=== PATIENT | male | born 1965 | race Caucasian/White ===

== ENCOUNTER → 2018-07-23 | Outpatient (CLI) | payer BC ==
[~2018-07-23] MED LIST: CIP500 PO; PER PO; TAMS0.4C25 PO
== END ==
LOC: US 00:44
PROVIDERS: ATTEND Family Medicine
DX: I48.0 Paroxysmal atrial fibrillation (principal); R29.898 Other symptoms and signs involving the musculoskeletal system; I51.7 Cardiomegaly; I34.0 Nonrheumatic mitral (valve) insufficiency
CPT/HCPCS: 93306

== ENCOUNTER → 2018-10-06 | Outpatient (CLI) | payer BC ==
--- NOTE | 2018-10-06 17:25 | RT STRESS TEST REPORT ---
FACILITY: [facility] PATIENT NAME: MANUEL WHATLEY : [id number] MR: [id number]: [id number] EXAM DATE: ORDERING PHYSICIAN: ANDREY NG TECHNOLOGIST: Bertha Acquisition Time: 2018-10-06 10:32:06 Total Exercise Time: 00:10:59 Test Indications: A fib Medications: See chart Protocol: REYNALDO 2 Max HR: 155 BPM 93% of Pred: 166 BPM Max BP: 201/085 mmHG Max Work Load: 13.6 METS see echo radiology report Confirmed by LEATHA HUDSON ([id number]), graphics editor ROSARIO CURRIE ([id number]) on 10/06/2018 5:24:28 PM Referred By: Overread By: LEATHA HUDSON
== END ==
LOC: RESP 00:10
PROVIDERS: ATTEND Internal Medicine Cardiovascular Disease
DX: I48.0 Paroxysmal atrial fibrillation (principal)
CPT/HCPCS: 93017; 93350